=== PATIENT | female | born 1960 | race Two or more races ===

== ENCOUNTER 2016-12-11 13:24 | Emergency (ER) | payer MEDICAID ==
[~2016-12-11] VITALS: Ht 162.6 cm; Wt 61.2 kg
[2016-12-11] MEDS ORDERED: Nitroglycerin Subl 0.4mg tab SL ONE (13:48)
[2016-12-11] MEDS ORDERED: Aspirin Baby 81mg ONE (13:48)
[2016-12-11] MEDS: Nitroglycerin Subl 0.4mg tab SL PRN ×2 (13:51→13:58)
[2016-12-11] MEDS ORDERED: Aspirin Baby 81mg ORAL ONE (14:00)
[2016-12-11 14:01] VITALS: BP 150/74
[2016-12-11] MEDS ORDERED: LOSARTAN-HCTZ1 EAC2 ORAL (14:13)
[2016-12-11 14:17] LABS: BASOPHILS % (AUTO) 1.3 % (0.0-2.0); EOSINOPHILS % (AUTO) 9.8 % (0.0-3.0); LYMPHOCYTES % (AUTO) 29.5 % (20.0-45.0); MEAN CORPUSCULAR HEMOGLOBIN 29.4 PG (27.0-31.0); MEAN CORPUSCULAR HGB CONC 32.7 G/DL (32.0-36.0); MEAN CORPUSCULAR VOLUME 90 FL (80-99); MEAN PLATELET VOLUME 7.5 FL (6.5-10.1); MONOCYTES % (AUTO) 13.2 % (1.0-10.0); NEUTROPHILS % (AUTO) 46.3 % (45.0-75.0); PLATELET COUNT 323 K/UL (150-450); RED BLOOD COUNT 4.57 M/UL (4.20-5.40); RED CELL DISTRIBUTION WIDTH 11.1 % (11.6-14.8); WHITE BLOOD COUNT 6.4 K/UL (4.8-10.8)
[2016-12-11 15:13] VITALS: BP 142/87
[2016-12-11 15:14] LABS: ALANINE AMINOTRANSFERASE 33 U/L (12-78); ANION GAP 14 (5-15); ASPARTATE AMINO TRANSFERASE 32 U/L (15-37); CALCIUM 9.3 MG/DL (8.5-10.1); CARBON DIOXIDE 24 MMOL/L (21-32); CHLORIDE 105 MMOL/L (98-107); CKMB 1.1 NG/ML (0.0-3.6); CREATININE 0.6 MG/DL (0.55-1.30); GLOMERULAR FILTRATION RATE > 60 mL/min (>60); POTASSIUM 3.7 MMOL/L (3.5-5.1); SODIUM 143 MMOL/L (136-145); TOTAL PROTEIN 7.2 G/DL (6.4-8.2)
[2016-12-11] MEDS ORDERED: DiphenhydrAMINE 50mg/ml Inj IVP ONE (15:30)
[2016-12-11] MEDS ORDERED: CLARITIN10 M2 ORAL (16:40)
[2016-12-11] MEDS ORDERED: PREDNISONE20 MG ORAL (16:40)
[2016-12-11 17:09] VITALS: BP 142/87
--- NOTE | 2016-12-11 21:13 | Emergency Room Report ---
History of Present Illness General Chief Complaint: Chest Pain Source: Patient Present Illness HPI Patient 56-year-old female who presented after increased chest pain. The patient having intermittent symptoms ago associated with some difficulty breathing. The pain had become constant approximately 8 hours prior to arrival. Patient had prior history of hypertension. She denies any fever. She reportedly had prior history of arthritis. Allergies: Coded Allergies: No Known Allergies (Unverified , 12/11/16) Patient History Past Medical History: see triage record Reviewed Nursing Documentation: PMH: Agreed, PSxH: Agreed Nursing Documentation-PMH Past Medical History: No History, Except For Hx Hypertension: Yes Review of Systems All Other Systems: negative except mentioned in HPI Physical Exam Vital Signs Date Time Temp Pulse Resp B/P (MAP) Pulse Ox O2 Delivery O2 Flow Rate FiO2 12/11/16 13:28 97.9 76 16 175/97 99 Room Air General Appearance: well appearing, no apparent distress, alert, GCS 15, non- toxic Head: normocephalic, atraumatic ENT: hearing grossly normal, normal voice Neck: full range of motion, supple Respiratory: lungs clear, normal breath sounds, no respiratory distress, speaking full sentences Cardiovascular #1: normal peripheral pulses, regular rate, rhythm, no edema Gastrointestinal: normal inspection, non tender, soft Musculoskeletal: no calf tenderness, swelling - multiple joints Neurologic: normal gait Psychiatric: mood/affect normal Skin: no rash Medical Decision Making Diagnostic Impression: Primary Impression: Allergic bronchitis ER Course Patient presented for chest pain. Differential diagnosis included but was not limited to acute coronary syndrome, pulmonary embolism, pneumonia, aortic dissection, shingles, pneumothorax, aortic dissection, esophageal rupture, pericarditis. Because of complexity of patient's case laboratory testing and imaging studies were ordered.I laboratory studies were notable for evidence of normal white blood count with the eosinophil predominance.The patient was given prescription for steroids. Bedside ultrasound showed normal cardiac wall motion without evidence of pericardial effusion. The patient's time course a chest pain rule for myocardial infarction. The patient is advised followup with her primary care physician for further evaluation. She is advised to return if his pain worsens or she begins having any other concerning signs or symptoms Labs Test 12/11/16 13:58 White Blood Count 6.4 K/UL (4.8-10.8) Red Blood Count 4.57 M/UL (4.20-5.40) Hemoglobin 13.4 G/DL (12.0-16.0) Hematocrit 41.1 % (37.0-47.0) Mean Corpuscular Volume 90 FL (80-99) Mean Corpuscular Hemoglobin 29.4 PG (27.0-31.0) Mean Corpuscular Hemoglobin Concent 32.7 G/DL (32.0-36.0) Red Cell Distribution Width 11.1 % (11.6-14.8) Platelet Count 323 K/UL (150-450) Mean Platelet Volume 7.5 FL (6.5-10.1) Neutrophils (%) (Auto) 46.3 % (45.0-75.0) Lymphocytes (%) (Auto) 29.5 % (20.0-45.0) Monocytes (%) (Auto) 13.2 % (1.0-10.0) Eosinophils (%) (Auto) 9.8 % (0.0-3.0) Basophils (%) (Auto) 1.3 % (0.0-2.0) Sodium Level 143 MMOL/L (136-145) Potassium Level 3.7 MMOL/L (3.5-5.1) Chloride Level 105 MMOL/L (98-107) Carbon Dioxide Level 24 MMOL/L (21-32) Anion Gap 14 (5-15) Blood Urea Nitrogen 18 mg/dL (7-18) Creatinine 0.6 MG/DL (0.55-1.30) Estimat Glomerular Filtration Rate > 60 mL/min (>60) Glucose Level 110 MG/DL (74-106) Calcium Level 9.3 MG/DL (8.5-10.1) Total Bilirubin 0.3 MG/DL (0.2-1.0) Aspartate Amino Transf (AST/SGOT) 32 U/L (15-37) Alanine Aminotransferase (ALT/SGPT) 33 U/L (12-78) Alkaline Phosphatase 93 U/L (46-116) Total Creatine Kinase 126 U/L (26-308) Creatine Kinase MB 1.1 NG/ML (0.0-3.6) Creatine Kinase MB Relative Index 0.8 Troponin I 0.004 ng/mL (0.000-0.056) Pro-B-Type Natriuretic Peptide 342 (0-125) Total Protein 7.2 G/DL (6.4-8.2) Albumin 3.6 G/DL (3.4-5.0) Globulin 3.6 g/dL Albumin/Globulin Ratio 1.0 (1.0-2.7) EKG Diagnostic Results Rate: normal Rhythm: NSR ST Segments: no acute changes Last Vital Signs Date Time Temp Pulse Resp B/P (MAP) Pulse Ox O2 Delivery O2 Flow Rate FiO2 12/11/16 17:09 68 16 142/87 100 Room Air 12/11/16 15:13 97.8 Status: improved Disposition: HOME, SELF-CARE Condition: Stable Scripts Loratadine (CLARITIN) 10 Mg Capsule 10 MG ORAL DAILY, #30 CAP Prov: Roque Husain 12/11/16 Prednisone* (PREDNISONE*) 20 Mg Tablet 40 MG ORAL DAILY, #10 TAB Prov: Roque Husain 12/11/16 Patient Instructions: Nonspecific Chest Pain Roque Husain Dec 11, 2016 21:13
--- NOTE | 2016-12-12 09:52 | Diagnostic Imaging Report ---
Indication: SOB Comparison: None Findings: Single view of the chest shows a normal cardiomediastinal silhouette. Pulmonary vasculature is normal. Lung are clear. Soft tissues and osseous structures are within normal limits. Impression: No acute chest disease
--- NOTE | 2016-12-21 08:29 | Cardiology Report ---
APPROVED REPORT EKG Measurement Heart [id number] Normal sinus rhythm Biatrial enlargement Abnormal ECG
== END 2016-12-11 17:15 | disposition home or self-care (01) ==
LOC: EMR 13:49
DX: J45.909 Unspecified asthma, uncomplicated (principal); I10 Essential (primary) hypertension
CPT/HCPCS: 36415; 71010; 80053; 82550; 82553; 83880; 84484; 85025; 93005; 96374; 99284; J1200